=== PATIENT | female | born 1980 | race Caucasian/White ===

== ENCOUNTER 2023-02-28 14:35 | Emergency (ER) | payer OTHER ==
[2023-02-28 14:42] VITALS: TEMP 97.9; BMI 31.2
[2023-02-28 16:29] LABS: BASO % 0.6 % (0-2.0); EOS % 0.6 % (0-4.5); HEMATOCRIT 38.4 % (32.4-45.2); HEMOGLOBIN 13.2 GM/dL (10.7-15.3); LYMPH % 24.1 % (8-40); MCH 29.4 pg (25.7-33.7); MCHC 34.3 g/dl (32.0-36.0); MEAN CELL VOLUME 85.7 fl (80-96); MEAN PLT VOLUME 6.9 fl (7.5-11.1); MONO % 7.5 % (3.8-10.2); NEUT % 67.2 % (42.8-82.8); PLATELET COUNT 473 10^3/uL (134-434); RBC 4.48 M/mm3 (3.60-5.2); RDW 14.2 % (11.6-15.6); WHITE BLOOD COUNT 9.4 K/mm3 (4.0-10.0)
[2023-02-28 16:55] LABS: CALCIUM 9.7 mg/dL (8.5-10.1)
[2023-02-28 16:56] LABS: ALBUMIN 3.3 g/dl (3.4-5.0); BLOOD UREA NITROGEN 11.8 mg/dL (7-18)
[2023-02-28 16:59] LABS: CREATININE 0.6 mg/dL (0.55-1.3)
[2023-02-28 17:00] LABS: BILIRUBIN,TOTAL 0.2 mg/dL (0.2-1); TOT PROT 7.5 g/dl (6.4-8.2)
[2023-02-28 18:08] LABS: EPI CELLS 10 /uL (0-25.1); HYALINE CASTS 0 /uL (0-3.1); PH,URINE 5.5 (5.0-8.0); URINE APPEARANCE CLEAR; URINE BACTERIA 75 /uL (0-1359); URINE BILIRUBIN NEGATIVE (NEGATIVE); URINE COLOR YELLOW; URINE GLUCOSE (UA) NEGATIVE (NEGATIVE); URINE KETONE NEGATIVE (NEGATIVE); URINE LEUK ESTERASE NEGATIVE (NEGATIVE); URINE NITRITE NEGATIVE (NEGATIVE); URINE PROTEIN NEGATIVE (NEGATIVE); URINE RBC 52 /uL (0-23.9); URINE UROBILINOGEN 0.2 mg/dL (0.2-1.0); URINE WBC 4 /uL (0-25.8)
[2023-02-28 20:23] VITALS: BP 110/78; PULSE 87; RESP 19
== END 2023-02-28 20:44 | disposition home or self-care (01) ==
LOC: JERFT 14:35 → JER 14:35 → JERFT 20:44
DX: O20.0 Threatened abortion (principal); Z3A.09 9 weeks gestation of pregnancy
CPT/HCPCS: 36415; 76817; 80053; 81003; 84702; 85025; 86850; 86900; 86901; 99284-25

== ENCOUNTER 2023-09-07 17:28 | Inpatient (IN) | payer OTHER ==
[2023-09-07 18:30] VITALS: BMI 37.3
[2023-09-07] MEDS ORDERED: ACETAMINOPHEN 1000 MG/100 ML BAG IVPB PRN (18:31)
[2023-09-07] MEDS ORDERED: ONDANSETRON 4 MG/2 ML VIAL IVPB PRN (18:31)
[2023-09-07] MEDS ORDERED: IBUPROFEN 800 MG/8 ML IJ IVPB PRN (18:31)
[2023-09-07 18:44] LABS: BASO % 0.5 % (0-2.0); EOS % 0.8 % (0-4.5); HEMATOCRIT 38.8 % (32.4-45.2); LYMPH % 26.1 % (8-40); MCHC 33.6 g/dl (32.0-36.0); MEAN CELL VOLUME 83.4 fl (80-96); MONO % 8.1 % (3.8-10.2); NEUT % 64.5 % (42.8-82.8); PLATELET COUNT 487 10^3/uL (134-434); RBC 4.65 M/mm3 (3.60-5.2); RDW 14.4 % (11.6-15.6); WHITE BLOOD COUNT 9.3 K/mm3 (4.0-10.0)
[2023-09-07 18:45] LABS: INR 0.95 (0.83-1.09)
[2023-09-07] MEDS ORDERED: OXYTOCIN 20 UNITS in 0.9% NS 20 UNIT/1,000 ML INFUS.BAG IV SCH (18:45)
[2023-09-07 18:48] LABS: ACTIVATED PTT 27.1 SECONDS (25.2-36.5)
[2023-09-07] MEDS ORDERED: OXYTOCIN 30 UNITS in 0.9% NS 30 UNIT/500 ML INFUS.BAG IVPB ONE ×2 (18:49→20:37)
[2023-09-07] MEDS ORDERED: PHENYLEPHRINE HCL 10 MG/1 ML SINGLE DOSE VIAL ONE (18:50)
[2023-09-07] MEDS ORDERED: FENTANYL CITRATE/PF 50 MCG/ML VIAL ONE (18:50)
[2023-09-07] MEDS ORDERED: METOCLOPRAMIDE HCL INJECTION 10 MG/2 ML VIAL ONE (18:50)
[2023-09-07] MEDS ORDERED: ceFAZolin SODIUM 1 GM VIAL ONE (18:50)
[2023-09-07] MEDS ORDERED: ONDANSETRON 4 MG/2 ML VIAL ONE (18:50)
[2023-09-07] MEDS ORDERED: CITRIC ACID/SODIUM CITRATE 30 ML UNIT-DOSE CUP PO ONE (18:56)
[2023-09-07] MEDS ORDERED: ELECTROLYTE-148 SOLN 500 ML IV ONE (18:56)
[2023-09-07 18:59] LABS: POTASSIUM 3.8 mmol/L (3.5-5.1)
[2023-09-07] MEDS ORDERED: ELECTROLYTE-148 SOLN 1,000 ML IV SCH (19:00)
[2023-09-07 19:01] LABS: CALCIUM 8.7 mg/dL (8.5-10.1)
[2023-09-07 19:02] LABS: ALBUMIN 2.5 g/dl (3.4-5.0)
[2023-09-07 19:05] LABS: CREATININE 0.6 mg/dL (0.55-1.3)
[2023-09-07 19:07] LABS: BILIRUBIN,TOTAL 0.3 mg/dL (0.2-1); TOT PROT 6.3 g/dl (6.4-8.2)
[2023-09-07] MEDS ORDERED: morphine SULFATE/PF 1 MG/2 ML (2cc Syringe - QUVA) IT ONE (19:24)
[2023-09-07] MEDS ORDERED: KETOROLAC TROMETHAMINE 30 MG/1 ML VIAL ONE (19:58)
[2023-09-07 20:15] LABS: CORD BASE EXCESS -5.3 mmol/L (0-2); CORD BASE EXCESS -6.3 mmol/L (0-2); CORD HCO3 21.8 mmHg (20-29); CORD HCO3 22.3 mmHg (20-29); CORD PCO2 48.5 mmHg (30-78); CORD PCO2 56.4 mmHg (30-78); CORD pH 7.214 (7.14-7.44); CORD pH 7.271 (7.14-7.44)
[2023-09-07] MEDS ORDERED: OXYTOCIN 20 UNITS in 0.9% NS 20 UNIT/1,000 ML INFUS.BAG IV ONE (20:39)
[2023-09-08] MEDS ORDERED: MISOPROSTOL 200 MCG TABLET ONE (01:00)
[2023-09-08] MEDS ORDERED: MISOPROSTOL 200 MCG TABLET PR ONE (01:00)
[2023-09-08] MEDS ORDERED: FAMOTIDINE 20 MG/50 ML IVPB 20 MG/50 ML MG IVPB ONE (01:09)
[2023-09-08] MEDS: SIMETHICONE 80 MG TAB.CHEW (FP) PO PRN ×3 (01:17→23:31)
[2023-09-08] MEDS: HEPARIN NA (PORCINE) 5,000 UNITS/ML 1ML VIAL SQ SCH ×2 (06:30→19:04)
[2023-09-08] MEDS: SENNOSIDES/DOCUSATE COMBO (SENNA PLUS) TABLET (UD) PO SCH ×2 (07:02→21:25)
[2023-09-08 09:21] LABS: BASO % 0.4 % (0-2.0); EOS % 0.2 % (0-4.5); HEMATOCRIT 30.4 % (32.4-45.2); HEMOGLOBIN 10.1 GM/dL (10.7-15.3); MCH 28.6 pg (25.7-33.7); MCHC 33.1 g/dl (32.0-36.0); MEAN CELL VOLUME 86.3 fl (80-96); MEAN PLT VOLUME 6.8 fl (7.5-11.1); MONO % 5.5 % (3.8-10.2); NEUT % 78.9 % (42.8-82.8); PLATELET COUNT 360 10^3/uL (134-434); RBC 3.53 M/mm3 (3.60-5.2); RDW 13.9 % (11.6-15.6); WHITE BLOOD COUNT 11.6 K/mm3 (4.0-10.0)
[2023-09-08 11:18] LABS: POC NITRAZINE NEG
[2023-09-08] MEDS: ACETAMINOPHEN 500 MG TABLET (FP) PO SCH ×2 (17:32→23:31)
[2023-09-08] MEDS ORDERED: BISACODYL 10 MG SUPP.RECT RC PRN (18:31)
[2023-09-08] MEDS: IBUPROFEN 600 MG TABLET (FP) PO SCH (19:00)
[2023-09-08] MEDS: FAMOTIDINE 20 MG TABLET PO SCH (21:25)
[2023-09-09] MEDS: IBUPROFEN 600 MG TABLET (FP) PO SCH ×4 (01:32→19:51)
[2023-09-09] MEDS: SIMETHICONE 80 MG TAB.CHEW (FP) PO PRN ×3 (06:01→19:53)
[2023-09-09] MEDS: ACETAMINOPHEN 500 MG TABLET (FP) PO SCH ×3 (06:01→17:16)
[2023-09-09] MEDS: HEPARIN NA (PORCINE) 5,000 UNITS/ML 1ML VIAL SQ SCH ×2 (06:04→17:16)
[2023-09-09] MEDS: FAMOTIDINE 20 MG TABLET PO SCH ×2 (09:53→21:17)
[2023-09-09] MEDS: oxyCODONE HCL 5 MG TABLET PO PRN ×2 (11:38→21:17)
[2023-09-09] MEDS: SENNOSIDES/DOCUSATE COMBO (SENNA PLUS) TABLET (UD) PO SCH (21:17)
[2023-09-10] MEDS: SIMETHICONE 80 MG TAB.CHEW (FP) PO PRN (00:03)
[2023-09-10] MEDS: ACETAMINOPHEN 500 MG TABLET (FP) PO SCH ×3 (00:04→12:20)
[2023-09-10] MEDS: IBUPROFEN 600 MG TABLET (FP) PO SCH ×3 (01:33→12:58)
[2023-09-10] MEDS: HEPARIN NA (PORCINE) 5,000 UNITS/ML 1ML VIAL SQ SCH (06:20)
[2023-09-10 09:21] VITALS: BP 111/71; PULSE 66; RESP 19; TEMP 98.1
[2023-09-10] MEDS: FAMOTIDINE 20 MG TABLET PO SCH (10:12)
[2023-09-10] MEDS: oxyCODONE HCL 5 MG TABLET PO PRN (10:19)
== END 2023-09-10 13:20 | disposition home or self-care (01) | DRG 540 ==
LOC: JDEL 17:28 → JLDR 18:00 → J3W 21:57
PROVIDERS: ADMIT Obstetrics & Gynecology; ATTEND Obstetrics & Gynecology
PROC: 10D00Z1 Extraction of Products of Conception, Low, Open Approach (ICD-10-PCS; principal; 2023-09-07)
DX: O36.63X0 Maternal care for excessive fetal growth, third trimester, not applicable or unspecified (principal); O24.429 Gestational diabetes mellitus in childbirth, unspecified control; Z3A.38 38 weeks gestation of pregnancy; Z37.0 Single live birth
CPT/HCPCS: 36415; 36600; 80048; 80053; 82570; 82803; 82962; 83986-QW; 84156; 85025; 85610; 85730; 86780; 86850; 86900; 86901; 88307-TC; 94010; J1644

== ENCOUNTER 2023-09-17 18:24 | Inpatient (IN) | payer OTHER ==
[2023-09-17] MEDS ORDERED: ACETAMINOPHEN 1000 MG/100 ML BAG IVPB ONE (19:23)
[2023-09-17] MEDS ORDERED: ACETAMINOPHEN INJECTION 100 ML IVPB ONE (20:01)
[2023-09-17 20:03] LABS: BASO % 1.1 % (0-2.0); EOS % 3.2 % (0-4.5); LYMPH % 34.4 % (8-40); MCH 28.4 pg (25.7-33.7); MCHC 33.4 g/dl (32.0-36.0); MEAN PLT VOLUME 6.2 fl (7.5-11.1); MONO % 8.5 % (3.8-10.2); NEUT % 52.8 % (42.8-82.8); PLATELET COUNT 687 10^3/uL (134-434); RBC 4.24 M/mm3 (3.60-5.2); RDW 14.5 % (11.6-15.6); WHITE BLOOD COUNT 7.6 K/mm3 (4.0-10.0)
[2023-09-17 20:10] LABS: PROTHROMBIN TIME (PATIENT) 11.6 SEC (9.7-13.0)
[2023-09-17 20:29] LABS: POTASSIUM 3.8 mmol/L (3.5-5.1)
[2023-09-17 20:31] LABS: ALBUMIN 2.8 g/dl (3.4-5.0); BLOOD UREA NITROGEN 18.2 mg/dL (7-18); CALCIUM 8.1 mg/dL (8.5-10.1)
[2023-09-17 20:32] LABS: MAGNESIUM 2.1 mg/dL (1.8-2.4)
[2023-09-17 20:34] LABS: CREATININE 0.6 mg/dL (0.55-1.3)
[2023-09-17 20:36] LABS: BILIRUBIN,TOTAL 0.2 mg/dL (0.2-1); TOT PROT 6.4 g/dl (6.4-8.2)
[2023-09-17 20:40] LABS: N-TERMINAL BNP 989.9 pg/ml (5-125)
[2023-09-17 21:10] LABS: EPI CELLS 5 /uL (0-25.1); HYALINE CASTS 0 /uL (0-3.1); PH,URINE 6.5 (5.0-8.0); URINE APPEARANCE CLEAR; URINE BACTERIA 34 /uL (0-1359); URINE BILIRUBIN NEGATIVE (NEGATIVE); URINE COLOR YELLOW; URINE GLUCOSE (UA) NEGATIVE (NEGATIVE); URINE KETONE NEGATIVE (NEGATIVE); URINE LEUK ESTERASE TRACE (NEGATIVE); URINE NITRITE NEGATIVE (NEGATIVE); URINE PROTEIN NEGATIVE (NEGATIVE); URINE RBC 20 /uL (0-23.9); URINE UROBILINOGEN 0.2 mg/dL (0.2-1.0); URINE WBC 12 /uL (0-25.8)
[2023-09-17 22:00] VITALS: BMI 35.2
[2023-09-17 22:33] LABS: COCAINE, UR NEGATIVE (NEGATIVE); METHADONE, UR NEGATIVE (NEGATIVE); OPIATES, URI NEGATIVE (NEGATIVE); PHENCYCLIDINE,URINE NEGATIVE (NEGATIVE); URINE AMPHETAMINES NEGATIVE (NEGATIVE); URINE BARBITURATES NEGATIVE (NEGATIVE); URINE BENZODIAZEPINES NEGATIVE (NEGATIVE)
[2023-09-17] MEDS ORDERED: ZOLPIDEM TARTRATE 5 MG TABLET PO ONE (23:03)
[2023-09-18 09:18] VITALS: RESP 20
[2023-09-18 11:45] VITALS: BP 130/88; PULSE 92; TEMP 99
== END 2023-09-18 12:50 | disposition home or self-care (01) | DRG 561 ==
LOC: JER 18:24 → JERBED 20:39 → J3W 23:22
PROVIDERS: ADMIT Specialist; ATTEND Specialist
DX: O14.95 Unspecified pre-eclampsia, complicating the puerperium (principal)
CPT/HCPCS: 36415; 70450-TC; 71045-TC-FY; 80053; 80307; 81003; 82570; 83615; 83735; 83880; 84156; 85025; 85610; 85730; 86850; 86900; 86901; 87086; 93005; 93010; 99285-25

== ENCOUNTER 2023-09-26 10:35 | Inpatient (IN) | payer OTHER ==
[2023-09-26 11:01] VITALS: BMI 35.2
[2023-09-26] MEDS ORDERED: ACETAMINOPHEN 1000 MG/100 ML BAG IVPB ONE (11:11)
[2023-09-26] MEDS ORDERED: SODIUM CHLORIDE 0.9% 500 ML INFUS.BAG IV ONE (11:11)
[2023-09-26] MEDS ORDERED: ONDANSETRON 4 MG/2 ML VIAL IVPUSH ONE (11:11)
[2023-09-26] MEDS ORDERED: FAMOTIDINE 20 MG/50 ML IVPB 20 MG/50 ML MG IVPB ONE ×2 (11:11→11:48)
[2023-09-26 11:21] LABS: BASO % 1.1 % (0-2.0); EOS % 1.8 % (0-4.5); HEMATOCRIT 38.1 % (32.4-45.2); HEMOGLOBIN 12.2 GM/dL (10.7-15.3); LYMPH % 33.1 % (8-40); MCH 27.6 pg (25.7-33.7); MCHC 32.1 g/dl (32.0-36.0); MEAN CELL VOLUME 85.9 fl (80-96); MEAN PLT VOLUME 6.7 fl (7.5-11.1); MONO % 9.8 % (3.8-10.2); NEUT % 54.2 % (42.8-82.8); PLATELET COUNT 745 10^3/uL (134-434); RBC 4.43 M/mm3 (3.60-5.2); RDW 14.3 % (11.6-15.6); WHITE BLOOD COUNT 7.8 K/mm3 (4.0-10.0)
[2023-09-26 11:28] LABS: INR 1.2 (0.83-1.09); PROTHROMBIN TIME (PATIENT) 13.9 SEC (9.7-13.0)
[2023-09-26 11:31] LABS: ACTIVATED PTT 27.4 SECONDS (25.2-36.5)
[2023-09-26] MEDS ORDERED: ACETAMINOPHEN INJECTION 100 ML IVPB ONE (11:48)
[2023-09-26] MEDS ORDERED: ONDANSETRON 4 MG/2 ML VIAL ONE (11:48)
[2023-09-26 11:49] LABS: CALCIUM 8.7 mg/dL (8.5-10.1)
[2023-09-26 11:50] LABS: ALBUMIN 3.3 g/dl (3.4-5.0); BLOOD UREA NITROGEN 16.8 mg/dL (7-18); MAGNESIUM 2.3 mg/dL (1.8-2.4)
[2023-09-26 11:53] LABS: CREATININE 0.8 mg/dL (0.55-1.3)
[2023-09-26 11:54] LABS: BILIRUBIN,TOTAL 0.4 mg/dL (0.2-1); TOT PROT 6.7 g/dl (6.4-8.2)
[2023-09-26] MEDS ORDERED: AZITHROMYCIN IVPB 500 MG in DEXTROSE 5%-WATER - 250 ML IVPB ONE (13:36)
[2023-09-26 14:34] LABS: EPI CELLS 6 /uL (0-25.1); HYALINE CASTS 1 /uL (0-3.1); URINE APPEARANCE CLEAR; URINE BACTERIA 177 /uL (0-1359); URINE BILIRUBIN NEGATIVE (NEGATIVE); URINE COLOR YELLOW; URINE GLUCOSE (UA) NEGATIVE (NEGATIVE); URINE KETONE NEGATIVE (NEGATIVE); URINE LEUK ESTERASE 2+ (NEGATIVE); URINE NITRITE NEGATIVE (NEGATIVE); URINE PROTEIN 1+ (NEGATIVE); URINE UROBILINOGEN 0.2 mg/dL (0.2-1.0); URINE WBC 207 /uL (0-25.8)
[2023-09-26 14:39] LABS: URINE RBC 85.5 /uL (0-23.9)
[2023-09-26] MEDS ORDERED: CEFTRIAXONE 1 GM/50 ML BAG ONE (14:45)
[2023-09-26] MEDS ORDERED: DOXYCYCLINE INJECTION 100 MG in DEXTROSE 5%-WATER 100 ML IVPB ONE (15:14)
[2023-09-26] MEDS ORDERED: DOXYCYCLINE HYCLATE 100 MG VIAL ONE (16:09)
[2023-09-26] MEDS ORDERED: FUROSEMIDE 40 MG/4 ML INJECTABLE VIAL IVPUSH ONE (17:29)
[2023-09-26] MEDS ORDERED: FUROSEMIDE 40 MG/4 ML INJECTABLE VIAL ONE (18:16)
[2023-09-26] MEDS ORDERED: TRIMETHOBENZAMIDE HCL 200MG/2ML INJ IM PRN (19:50)
[2023-09-26] MEDS: ACETAMINOPHEN 1000 MG/100 ML BAG IVPB PRN (20:41)
[2023-09-26] MEDS ORDERED: HEPARIN NA (PORCINE) 5,000 UNITS/ML 1ML VIAL ONE (21:25)
[2023-09-26] MEDS: HEPARIN NA (PORCINE) 5,000 UNITS/ML 1ML VIAL SQ SCH (22:23)
[2023-09-27] MEDS ORDERED: FUROSEMIDE 40 MG/4 ML INJECTABLE VIAL IVPUSH ONE (00:26)
[2023-09-27] MEDS: DOXYCYCLINE INJECTION 100 MG in DEXTROSE 5%-WATER 100 ML IVPB SCH ×3 (06:12→22:11)
[2023-09-27] MEDS: HEPARIN NA (PORCINE) 5,000 UNITS/ML 1ML VIAL SQ SCH ×3 (06:17→21:30)
[2023-09-27] MEDS: ACETAMINOPHEN 1000 MG/100 ML BAG IVPB PRN ×2 (06:29→14:37)
[2023-09-27 08:55] LABS: BASO % 1.9 % (0-2.0); HEMATOCRIT 35.4 % (32.4-45.2); HEMOGLOBIN 11.7 GM/dL (10.7-15.3); LYMPH % 29.3 % (8-40); MEAN PLT VOLUME 7.2 fl (7.5-11.1); MONO % 7.4 % (3.8-10.2); NEUT % 59.4 % (42.8-82.8); PLATELET COUNT 655 10^3/uL (134-434); RBC 4.16 M/mm3 (3.60-5.2); RDW 14.5 % (11.6-15.6); WHITE BLOOD COUNT 7.4 K/mm3 (4.0-10.0)
[2023-09-27 08:56] LABS: POTASSIUM 3.9 mmol/L (3.5-5.1)
[2023-09-27 09:09] LABS: CREATININE 0.9 mg/dL (0.55-1.3); PHOSPHOROUS 4.9 mg/dL (2.5-4.9)
[2023-09-27] MEDS: PANTOPRAZOLE 40 MG TABLET PO SCH (09:47)
[2023-09-27] MEDS: CEFTRIAXONE 1 GM in DEXTROSE 5%-WATER - 50 ML IVPB SCH (11:00)
[2023-09-27] MEDS: FUROSEMIDE 40 MG/4 ML INJECTABLE VIAL IVPUSH SCH (16:06)
[2023-09-27] MEDS ORDERED: ACETAMINOPHEN 1000 MG/100 ML BAG IVPB PRN (21:03)
[2023-09-27] MEDS ORDERED: MAG HYDROX/AL HYDROX/SIMETH 30 ML UNIT-DOSE CUP PO PRN (21:04)
[2023-09-28] MEDS: HEPARIN NA (PORCINE) 5,000 UNITS/ML 1ML VIAL SQ SCH ×2 (06:04→15:30)
[2023-09-28 08:02] LABS: BLOOD UREA NITROGEN 28.2 mg/dL (7-18); CALCIUM 8.1 mg/dL (8.5-10.1)
[2023-09-28 08:05] LABS: CREATININE 0.9 mg/dL (0.55-1.3)
[2023-09-28 08:07] LABS: BILIRUBIN,TOTAL 0.3 mg/dL (0.2-1); TOT PROT 6.2 g/dl (6.4-8.2)
[2023-09-28 08:27] LABS: BASO % 1.9 % (0-2.0); HEMATOCRIT 34.4 % (32.4-45.2); HEMOGLOBIN 11.7 GM/dL (10.7-15.3); LYMPH % 32.5 % (8-40); MCH 28.8 pg (25.7-33.7); MCHC 34.1 g/dl (32.0-36.0); MEAN CELL VOLUME 84.6 fl (80-96); MEAN PLT VOLUME 7.4 fl (7.5-11.1); MONO % 8.6 % (3.8-10.2); PLATELET COUNT 644 10^3/uL (134-434); RBC 4.06 M/mm3 (3.60-5.2); RDW 14.6 % (11.6-15.6)
[2023-09-28] MEDS: PANTOPRAZOLE 40 MG TABLET PO SCH (09:40)
[2023-09-28] MEDS: CEFTRIAXONE 1 GM in DEXTROSE 5%-WATER - 50 ML IVPB SCH (09:40)
[2023-09-28] MEDS: FUROSEMIDE 40 MG/4 ML INJECTABLE VIAL IVPUSH SCH (09:40)
[2023-09-28] MEDS: DOXYCYCLINE INJECTION 100 MG in DEXTROSE 5%-WATER 100 ML IVPB SCH (09:40)
[2023-09-28] MEDS ORDERED: SUCRALFATE 1 GM/10 ML UNIT DOSE CUPS PO SCH (18:00)
[2023-09-28 20:05] VITALS: TEMP 98.2
[2023-09-28 20:11] VITALS: BP 122/85; PULSE 112; RESP 24
[2023-09-30 20:12] LABS: ANTIGLOMERULAR BASEMENT MEN.AB <0.2 units (0.0-0.9)
== END 2023-09-28 20:20 | disposition short-term general hospital (02) | DRG 561 ==
LOC: JER 10:35 → MERGE 18:11 → JERBED 18:11 → J4W 09-27 00:54 → JICU 09-28 14:29
PROVIDERS: ADMIT Internal Medicine; ATTEND Family Medicine
DX: O90.3 Peripartum cardiomyopathy (principal); J18.9 Pneumonia, unspecified organism; J90 Pleural effusion, not elsewhere classified; R60.0 Localized edema; R11.2 Nausea with vomiting, unspecified; J96.01 Acute respiratory failure with hypoxia; J98.11 Atelectasis; D47.3 Essential (hemorrhagic) thrombocythemia; N28.1 Cyst of kidney, acquired; R10.11 Right upper quadrant pain; N39.0 Urinary tract infection, site not specified; R00.0 Tachycardia, unspecified; K76.0 Fatty (change of) liver, not elsewhere classified; I11.0 Hypertensive heart disease with heart failure; I50.9 Heart failure, unspecified; R79.89 Other specified abnormal findings of blood chemistry; R80.9 Proteinuria, unspecified; R31.9 Hematuria, unspecified; E66.9 Obesity, unspecified; Z68.35 Body mass index [BMI] 35.0-35.9, adult
CPT/HCPCS: 0241U-QW; 36415; 71045-TC-FY; 71275-TC; 74177-TC; 76705-TC; 80048; 80053; 81003; 82570; 82962; 83516; 83690; 83735; 83880; 84100; 84155; 84156; 84165; 84443; 84484; 85025; 85379; 85610; 85730; 86038; 86160; 86225; 86705; 86803; 86850; 86900; 86901; 87040; 87086; 87340; 87517; 93005; 93010; 99291; J1644